=== PATIENT | male | born 1975 | race Caucasian/White ===

== ENCOUNTER 2023-09-08 14:00 | Outpatient (RCR) | payer OTHER, SELFPAY | END 2023-11-24 15:25 | disposition home or self-care (01) | PROVIDERS: PCP Family Medicine; Visit Provider Family Medicine | DX: M54.2 Cervicalgia (principal); M25.511 Pain in right shoulder; G44.86 Cervicogenic headache; M62.830 Muscle spasm of back; Z51.89 Encounter for other specified aftercare | CPT/HCPCS: 97035; 97110; 97140; 97161 ==